=== PATIENT | female | born 1995 | race Caucasian/White ===

== ENCOUNTER 2017-07-28 00:04 | Emergency (ER) | payer OTHER, SELFPAY ==
[2017-07-28 00:06] VITALS: BP 98/84; PULSE 94; RESP 16; TEMP 36.4; O2SAT 100; BMI 23.1
[2017-07-28 00:49] VITALS: BP 102/78; PULSE 86; RESP 15; O2SAT 100
[2017-07-28] MEDS: 0.9% Normal Saline 1,000 ML 999 ML IV (00:49)
--- NOTE | 2017-07-28 01:02 | ED.VISSUMM ---
- ER Visit Summary Date of Service: 07/28/17 Chief Complaint: Alcohol intoxication History of Present Illness: The patient is a 21 F presenting for evaluation due to alcohol intoxication. Patient had paramedics called this evening because she was significantly intoxicated and was vomiting multiple times. Patient states that she was having a green party with some friends and was drinking heavily this evening. She denies any other coingestants, she denies being suicidal or homicidal. States she has some mild nausea but denies any other symptoms at this time. Physical Examination: Vital signs are within normal limits, patient is afebrile. General: Patient is well-nourished well-developed and in no acute distress. Head: Normocephalic, atraumatic Eyes: Pupils equal round and reactive bilaterally, extra occular motion intact bialterally ENT: Moist mucous membranes Neck: Supple, no lymphadenopathy, no JVD, no meningismus CVS: Heart regular rate and rhythm, no murmurs, rubs or gallops, radial pulses 2+ bilaterally Resp: Respirations nondistressed, lung sounds clear bilaterally Abdomen: Soft, nontender, nondistended, no palpable masses, normal bowel sounds Back: Nontender Extremities: Nontender, atraumatic, active full range of motion, no peripheral edema Skin: warm, no rashes, no petechia Neuro: Alert and oriented x 4, CN 2-12 intact, no lateralizing neurological defecits, patient is somewhat intoxicated Psyc: Normal affect, no suicidal or homicidal ideations Test Results: None indicated Emergency Department Course and Treatment: Patient presented secondary to alcohol intoxication. She was given a liter normal saline. There are no tests indicated at this time she has normal pulse ox she is completely awake lucid has no evidence of hypoxia no evidence of aspiration no evidence of neurologic deficits. Patient's friends are at bedside, believe that she safely can be discharged in their custody. She will follow-up as needed. Disposition: Discharge Impression: 1. Alcohol intoxication, acute This note was generated with [employer] dictation software. It may contain incorrect words, spelling, and punctuation that were not noted in review of the chart prior to signing ED Disposition - Plan for ED Patient: Disposition: Home or Assisted Living Chief Complaint: ETOH Intox Diagnosis: Alcohol intoxication Instructions: ED Alcohol Intoxication Additional Instructions: Follow-up as needed
--- NOTE | 2017-07-28 01:05 | ED.DCSUM_ITS ---
- ER Visit Summary Date of Service: 07/28/17 Chief Complaint: Alcohol intoxication History of Present Illness: The patient is a 21 F presenting for evaluation due to alcohol intoxication. Patient had paramedics called this evening because she was significantly intoxicated and was vomiting multiple times. Patient states that she was having a green party with some friends and was drinking heavily this evening. She denies any other coingestants, she denies being suicidal or homicidal. States she has some mild nausea but denies any other symptoms at this time. Physical Examination: Vital signs are within normal limits, patient is afebrile. General: Patient is well-nourished well-developed and in no acute distress. Head: Normocephalic, atraumatic Eyes: Pupils equal round and reactive bilaterally, extra occular motion intact bialterally ENT: Moist mucous membranes Neck: Supple, no lymphadenopathy, no JVD, no meningismus CVS: Heart regular rate and rhythm, no murmurs, rubs or gallops, radial pulses 2 + bilaterally Resp: Respirations nondistressed, lung sounds clear bilaterally Abdomen: Soft, nontender, nondistended, no palpable masses, normal bowel sounds Back: Nontender Extremities: Nontender, atraumatic, active full range of motion, no peripheral edema Skin: warm, no rashes, no petechia Neuro: Alert and oriented x 4, CN 2-12 intact, no lateralizing neurological defecits, patient is somewhat intoxicated Psyc: Normal affect, no suicidal or homicidal ideations Test Results: None indicated Emergency Department Course and Treatment: Patient presented secondary to alcohol intoxication. She was given a liter normal saline. There are no tests indicated at this time she has normal pulse ox she is completely awake lucid has no evidence of hypoxia no evidence of aspiration no evidence of neurologic deficits. Patient's friends are at bedside, believe that she safely can be discharged in their custody. She will follow-up as needed. Disposition: Discharge Impression: 1. Alcohol intoxication, acute This note was generated with [employer] dictation software. It may contain incorrect words, spelling, and punctuation that were not noted in review of the chart prior to signing ED Disposition - Plan for ED Patient: Disposition: Home or Assisted Living Chief Complaint: ETOH Intox Diagnosis: Alcohol intoxication Instructions: ED Alcohol Intoxication Additional Instructions: Follow-up as needed
[2017-07-28 01:12] VITALS: BP 102/78; PULSE 84; RESP 14; O2SAT 97
--- NOTE | 2017-07-28 01:13 | ED.RN ---
[facility] CONTACTED TO GIVE PT A RIDE BACK TO CAMPUS.
== END 2017-07-28 01:17 | disposition home or self-care (01) ==
PROVIDERS: Emergency Provider Emergency Medicine
DX: F10.129 Alcohol abuse with intoxication, unspecified (principal); Y90.9 Presence of alcohol in blood, level not specified
CPT/HCPCS: 99284; J7030